=== PATIENT | female | born 1975 | race Caucasian/White ===

== ENCOUNTER 2018-05-03 20:12 | Emergency (ER) | payer MEDICAID ==
[~2018-05-03] VITALS: Ht 157.5 cm; Wt 63.5 kg
--- NOTE | 2018-05-03 21:00 | NUR ---
PT BIB SELF C/O L SIDED CHEST PRESSURE WHICH RADIATES TO L SIDE OF HEAD AND L ARM DESRIBED ACHY X1 DAY. NON-PROVOKED. SKIN WARM DRY. RESP EVEN UNLABORED. AMBULATORY STEADY GAIT. DENIES N/V/D. IN ER BED 10.
[2018-05-03 21:15] LABS: BASOPHILS # (AUTO) 0.1 /CMM (0.0-0.2); BASOPHILS % (AUTO) 0.7 % (0.0-2.0); EOSINOPHILS % (AUTO) 1.7 % (0.0-6.0); HEMATOCRIT 40 % (33-45); HEMOGLOBIN 13.6 g/dL (11.5-14.8); LYMPHOCYTES # (AUTO) 3.1 /CMM (0.8-4.8); LYMPHOCYTES % (AUTO) 31.2 % (20.0-44.0); MEAN CORPUSCULAR HEMOGLOBIN 29 PG (26.0-33.0); MEAN CORPUSCULAR HGB CONC 34 g/dl (31.0-36.0); MEAN CORPUSCULAR VOLUME 85 fL (82-100); MONOCYTES # (AUTO) 0.5 /CMM (0.1-1.30); MONOCYTES % (AUTO) 5.5 % (2.0-12.0); NEUTROPHILS % (AUTO) 60.9 % (43.0-81.0); PLATELET COUNT (AUTO) 227 /CMM (150-450); RDW COEFFICIENT OF VARIATION 12.1 (11.5-15.0); RED BLOOD CELL COUNT(AUTO) 4.63 MIL/uL (4.0-5.2); WHITE BLOOD COUNT (AUTO) 9.9 K/uL (4.3-11.0)
[2018-05-03 21:28] LABS: CALCIUM, SERUM 9.2 mg/dL (8.5-10.1); CARBON DIOXIDE 30 mmol/L (21-32); CHLORIDE 103 mmol/L (98-107); CREATININE 0.7 mg/dL (0.6-1.3); GLUCOSE 310 mg/dL (74-106); POTASSIUM 4.2 mmol/L (3.5-5.1); SODIUM SERUM 137 mmol/L (136-145); UREA NITROGEN, BLOOD 14 mg/dL (7-18)
[2018-05-03 21:31] LABS: INR 0.9 (0.85-1.15)
[2018-05-03 21:36] LABS: TROPONIN I < 0.017 ng/mL (0.00-0.056)
[2018-05-03 21:50] LABS: BILIRUBIN,DIRECT 0.1 mg/dL (0.0-0.2); BILIRUBIN,TOTAL 0.2 mg/dL (0.2-1.0)
[2018-05-03 21:51] LABS: ALBUMIN 3.7 g/dL (3.4-5.0); TOTAL PROTEIN, SERUM 6.9 g/dL (6.4-8.2)
--- NOTE | 2018-05-03 22:23 | NUR ---
COTTON HEADER AT BEDSIDE FOR UPDATE; PT UNDERSTANDS PLAN OF CARE
[2018-05-03] MEDS ORDERED: ASPIRIN 325 MG TABLET ONE (23:24)
[2018-05-03] MEDS ORDERED: IBUPROFEN 600 MG TABLET PO ONE ×2 (23:24→23:30)
[2018-05-03] MEDS ORDERED: ASPIRIN 325 MG TABLET PO ONE (23:30)
[2018-05-03] MEDS ORDERED: NITROGLYCERIN 0.4 MG/TAB BOTTLE ONE (23:30)
[2018-05-03] MEDS ORDERED: NITROGLYCERIN 0.4 MG/TAB BOTTLE SL ONE (23:30)
--- NOTE | 2018-05-04 00:40 | NUR ---
Patient discharged to home in stable condition. Written and verbal after care instructions given. Patient verbalizes understanding of instruction. ambulatory steady gait.
[2018-05-04 00:56] VITALS: BP 131/98
== END 2018-05-04 00:57 | disposition home or self-care (01) ==
LOC: ER 20:16
DX: R07.89 Other chest pain (principal); E11.9 Type 2 diabetes mellitus without complications; I10 Essential (primary) hypertension
CPT/HCPCS: 36415; 71045-TC; 80048-TC; 80076-TC; 83690-TC; 84484-TC; 85025-TC; 85730-TC; A4606; Z7610